=== PATIENT | male | born 1990 | race Caucasian/White ===

== ENCOUNTER 2021-09-10 19:43 | Emergency (ER) | payer SELFPAY ==
[~2021-09-10] VITALS: Ht 160 cm; Wt 70.3 kg
--- NOTE | 2021-09-10 19:45 | NUR ---
Pt brought by self, A&Ox4, pt presents to ER with R wrist pain after falling from skateboard, swelling noted, skin pink and warm, cap refill <3, VSS.
[2021-09-10 19:55] VITALS: BP_SYST 117
--- NOTE | 2021-09-10 19:58 | NUR ---
Dr Lopez evaluating patient in the triage room
[2021-09-10] MEDS ORDERED: HYDR-3917 PO (21:24)
--- NOTE | 2021-09-10 22:03 | NUR ---
SUGAR TONG splint applied to RIGHT ARM. RADIAL pulse noted. Capillary refill <3 seconds. Patient has ability to move non-splinted digits. Has sensation present to affected site. Skin color within normal limits. Applied for pain management control.
[2021-09-10 22:05] VITALS: BP_SYST 117
--- NOTE | 2021-09-10 22:05 | NUR ---
Patient given written and verbal discharge instructions and verbalizes understanding. ER MD discussed with patient the results and treatment provided. Patient in stable condition. ID arm band removed. Rx of NORCO given. Patient educated on pain management and to follow up with PMD. Pain Scale 0/10 Opportunity for questions provided and answered. Medication side effect fact sheet provided.
== END 2021-09-10 22:02 | disposition home or self-care (01) ==
LOC: SED 19:43
DX: S52.501A Unspecified fracture of the lower end of right radius, initial encounter for closed fracture (principal); V29.49XA Motorcycle driver injured in collision with other motor vehicles in traffic accident, initial encounter; Y93.89 Activity, other specified; Y92.89 Other specified places as the place of occurrence of the external cause; Y99.8 Other external cause status
CPT/HCPCS: 99283